=== PATIENT | female | born 1995 | race Caucasian/White ===

== ENCOUNTER 2019-11-21 10:33 | Emergency (ER) | payer BC | END 2019-11-21 11:11 | disposition home or self-care (01) | LOC: JVIRT 10:33 | DX: Z11.59 Encounter for screening for other viral diseases (principal) | CPT/HCPCS: C9803; G2012-GT; Q3014-GT; U0003 ==

== ENCOUNTER 2019-12-02 14:01 | Emergency (ER) | payer BC ==
--- NOTE | 2019-12-02 15:50 | TELE ---
HPI Do you have fever,cough or shortness of breath?: No - General Reason For Visit: COVID 19 TEST History Source: Patient, Sibling - History of Present Illness Timing/Duration: other Associated Symptoms: reports: denies symptoms 12/02/19 15:46 Patient requested COVID testing after returning from a trip to [facility] yesterday. Patient states has no symptoms but is concerned since she was on an excursion with other individuals besides her family members in close proximity. Past History - Travel History Traveled outside of the country in the last 30 days: Yes If so, where?: [facility] Close contact w/someone who was outside of country & ill: No - Reproductive History LMP Normal: Yes - Psycho-Social/Smoking History Patient Lives Alone: No Lives with/in: parents Do you think of yourself as: Straight/Heterosexual Smoking Status: No Smoking History: Never smoked Have you smoked in the past 12 months: No Review of Systems - Review of Systems Able to Perform ROS?: No Limited Portuguese proficient: No Constitutional: No: Symptoms Reported HEENTM: No: Symptoms Reported Respiratory: No: Symptoms reported Cardiac (ROS): No: Symptoms Reported ABD/GI: No: Symptoms Reported : No: Symptoms Reported Musculoskeletal: No: Symptoms Reported Integumentary: No: Symptoms Reported Neurological: No: Symptoms reported *Physical Exam - Physical Exam General Appearance: Yes: Nourished, Appropriately Dressed. No: Apparent Distress HEENT: positive: EOMI Neck: negative: Decreased range of motion Respiratory/Chest: negative: Respiratory Distress Gastrointestinal/Abdominal: negative: Distended Extremity: positive: Normal Inspection Integumentary: positive: Normal Color Neurologic: positive: Fully Oriented - Medical Decision Making 12/02/19 15:48 Patient requesting Pulvertaft sting after returning from a trip. Patient asymptomatic. Covid test ordered Discharge Diagnosis at time of Disposition: Encounter for screening laboratory testing for COVID-19 virus - Referrals - Patient Instructions - Discharge Disposition: HOME Condition at time of Disposition: Good
== END 2019-12-02 15:50 | disposition home or self-care (01) ==
LOC: JVIRT 14:01
DX: Z03.818 Encounter for observation for suspected exposure to other biological agents ruled out (principal)
CPT/HCPCS: Q3014-GT; U0003

== ENCOUNTER 2020-08-26 13:35 | Emergency (ER) | payer BC ==
[2020-08-28 08:08] LABS: SARS-CoV-2 NAA Not Detected (Not Detected)
== END 2020-08-26 14:31 | disposition home or self-care (01) ==
LOC: JVIRT 13:35
DX: Z11.52 Encounter for screening for COVID-19 (principal)
CPT/HCPCS: C9803; G2251-GT; U0003; U0005